=== PATIENT | female | born 1955 | race Caucasian/White ===

== ENCOUNTER 2017-07-07 05:15 | Emergency (ER) | payer OTHER ==
[~2017-07-07] VITALS: Ht 162.6 cm; Wt 81.6 kg
--- NOTE | 2017-07-07 05:27 | NUR ---
LACERATION APPROX 3CM LAC TO RIGHT FRONTAL AREA OF HEAD, MININAL BLEEDING
[2017-07-07] MEDS ORDERED: TETANUS DIPHTHERIA TOXOIDS IM ONE (05:41)
--- NOTE | 2017-07-07 05:42 | ER.PDOC ---
General Chief Complaint: Head Injury Stated Complaint: HEAD LAC Time seen by MD: 05:38 Source: patient Exam Limitations: no limitations History of Present Illness Initial Comments 62 year old white female with head laceration. Fell and hit her head < 1 hour ago. No passing out. + severe headache. Ambulatory Occurred: just prior to arrival Where: home Severity: moderate Context: fall Associated Symptoms: No Loss of Consciousness Remembers: injury, coming to hospital Allergies: Coded Allergies: No Known Allergies (Unverified , 07/07/17) Past Medical History Medical History: hypertension, other (depression) Surgical History: no surgical history LMP (females 10-50): postmenopause Social History Smoking: non-smoker Alcohol Use: none Drug Use: none Review of Systems Constitutional: denies no symptoms reported, denies see HPI, denies chills, denies diaphoresis, denies fever, denies malaise, denies weakness, denies other Eyes: denies no symptoms reported, denies see HPI, denies blindness, denies blurred vision, denies drainage, denies decreased acuity, denies foreign body sensation, denies inflammation, denies pain, denies photophobia, denies previous injury, denies shadows, denies tunnel vision, denies vision change, denies contact lenses, denies glasses, denies other Ears: see HPI, pain Nose: denies no symptoms reported, denies see HPI, denies clots, denies congestion, denies epistaxis, denies pain, denies bloody discharge, denies clear discharge, denies purulent discharge, denies serosanguinous discharge, denies previous injury, denies other Mouth: denies no symptoms reported, denies see HPI, denies clots, denies loose teeth, denies pain, denies swelling, denies bloody discharge, denies clear discharge, denies purulent discharge, denies serosanguinous discharge, denies previous injury, denies other Throat: denies no symptoms reported, denies see HPI, denies pain, denies swelling, denies discharge, denies neck stiffness, denies hoarse, denies aphonia , denies muffled, denies painful swallowing, denies difficulty with fluids, denies previous injury, denies other Respiratory: denies no symptoms reported, denies see HPI, denies cough, denies orthopnea, denies shortness of breath, denies stridor, denies wheezing, denies other Cardiovascular: denies no symptoms reported, denies see HPI, denies chest pain , denies edema, denies irregular heart rate, denies lightheadedness, denies palpitations, denies syncope, denies other Gastrointestinal: denies no symptoms reported, denies see HPI, denies abdominal pain, denies constipation, denies diarrhea, denies nausea, denies vomiting, denies other Genitourinary: denies no symptoms reported, denies see HPI, denies discharge, denies dysuria, denies frequency, denies hematuria, denies pain, denies other Musculoskeletal: denies no symptoms reported, denies see HPI, denies back pain , denies gout, denies joint pain, denies joint swelling, denies muscle pain, denies muscle stiffness, denies neck pain, denies other Physical Exam General Appearance: alert, no distress Head: non-tender, no swelling 1 - 3 cm gaping non actively bleeding laceration Neck: non-tender, painless ROM Eyes: lids nml, conjunctivae nml, PERRL, EOMI ENT: nml external exam, pharynx nml, no injury to teeth, no injury lips, no injury gums Neuro/Psych: oriented x 3, sensation nml, motor nml, CN's nml as tested, mood/ affect nml Respiratory: chest non-tender, no resp distress CVS: heart sounds nml, reg. rate & rhythm Abdomen: non-tender Skin: intact, nml palp Comments Neuro: non focal Laceration/Wound Repair Laceration/Wound Repair : Wound Length (cm): 3 Distal NVT: neuro intact Wound's Depth, Shape: linear, subcutaneous Wound Explored: clean Wound Repaired With: sutures Number of Sutures: 4 Results/Orders Results/Orders Administered Medications Medications (Trade) Dose Ordered Sig/Janeth Route PRN Reason Start Time Stop Time Status Last Admin Dose Admin Ondansetron HCl (Zofran Odt) 4 mg STAT STAT SL 07/07/17 05:58 07/07/17 05:59 DC 07/07/17 05:58 Progress Progress One episode of non projectile vomiting noted. Rx: Zofran ODT CT results reviewed with patient. EKG/XRAY/CT/US CT Comments: Negative CT brain Departure Time of Disposition: 06:07 Disposition: 01 HOME, SELF-CARE Impression: Primary Impression: Concussion without loss of consciousness Additional Impression: Scalp laceration Condition: Stable Referrals: Mayela VAZQUEZ (PCP) PRIMARY CARE PROVIDER Additional Instructions: Watch for signs and symptoms of infection head injury precautions Remove suture in 10 days Wound care instruction RTER prn follow up PCP Problem Qualifiers Primary Impression: Concussion without loss of consciousness Encounter type: initial encounter Qualified Codes: S06.0X0A - Concussion without loss of consciousness, initial encounter Additional Impression: Scalp laceration Encounter type: initial encounter Qualified Codes: S01.01XA - Laceration without foreign body of scalp, initial encounter TALAT COELHO MD Jul 07, 2017 05:42
--- NOTE | 2017-07-07 05:44 | NUR ---
TETANUS LOT [id number] EXP [birth year]19 [facility]
--- NOTE | 2017-07-07 05:45 | NUR ---
TO CT PATIENT TO CT VIA WHEELCHAIR WITH RENNY,RAD
--- NOTE | 2017-07-07 05:50 | NUR ---
BACK FROM CT PATIENT VOMITTED WHEN BACK FROM CT, EDP NOTIFIED. NEW ORDERS WRITTEN
[2017-07-07] MEDS ORDERED: ZOFRAN ODT ONE (05:53)
[2017-07-07] MEDS ORDERED: ZOFRAN ODT SL STA (05:58)
[2017-07-07] MEDS ORDERED: BOOSTRIX VACCINE SYRINGE IM ONE (06:00)
--- NOTE | 2017-07-07 06:00 | DIREP ---
PROCEDURE:CT HEAD OR BRAIN W/O CONTRAST COMPARISON:None. INDICATIONS:fall, laceration, dizzy,nausea, vomiting TECHNIQUE:CT images were created without intravenous contrast. FINDINGS: VENTRICLES: Negative. CEREBRUM: Negative. CEREBELLUM: Negative. BRAINSTEM: Negative. BASAL CISTERNS: Negative. SKULL: Negative. SINUSES: Negative. OTHER: Skin roque and soft tissue changes to the lateral frontal right side of the head. CONCLUSION: 1. There is no CT evidence of intracranial mass, hemorrhage, or acute infarct. Dictated by: Onur Ham M.D. on 07/07/2017 at 05:57 AM
[2017-07-07] MEDS ORDERED: TRIPLE ANTIBIOTIC OINTMENT TP ONE (06:03)
--- NOTE | 2017-07-07 06:07 | NUR ---
NEOSPORIN APPLIED TO HEAD LACERATION PER EDP
[2017-07-07 06:20] VITALS: BP 149/70
== END 2017-07-07 06:16 | disposition home or self-care (01) ==
LOC: ER 05:15
DX: S06.0X0A Concussion without loss of consciousness, initial encounter (principal); S01.01XA Laceration without foreign body of scalp, initial encounter; I10 Essential (primary) hypertension; F32.9 Major depressive disorder, single episode, unspecified; W01.198A Fall on same level from slipping, tripping and stumbling with subsequent striking against other object, initial encounter; Y93.89 Activity, other specified; Y92.009 Unspecified place in unspecified non-institutional (private) residence as the place of occurrence of the external cause; Y99.8 Other external cause status
CPT/HCPCS: 12002; 70450; 90471; 90714; 99284; Q0162